=== PATIENT | female | born 1960 | race Caucasian/White ===

== ENCOUNTER 2016-06-21 23:52 | Emergency (ER) | payer BC ==
[~2016-06-21] VITALS: Ht 167.6 cm; Wt 70.0 kg
[2016-06-21 23:57] VITALS: BP 109/66; PULSE 100; RESP 18; TEMP 97.9; O2SAT 99
[2016-06-22 01:00] VITALS: BP 115/65; PULSE 104; RESP 18; O2SAT 96
[2016-06-22] MEDS ORDERED: KETOROLAC TROMETHAMINE 30 MG/ML (IVP) VIAL IV PUSH ONE (01:00)
[2016-06-22] MEDS ORDERED: CYCLOBENZAPRINE HCL 10 MG TAB PO ONE (01:00)
--- NOTE | 2016-06-22 01:39 | RADRPT ---
EXAM DATE/TIME: 06/22/2016 01:21 [place] COMPARISON: No previous studies available for comparison. INDICATIONS : Patient slipped and fell in hotel room, landing on left shoulder. Complains of left shoulder pain in proximal humerus. MEDICAL HISTORY : None. SURGICAL HISTORY : None. ENCOUNTER: Initial ACUITY: 1 day PAIN SCORE: 10/10 LOCATION: Left Shoulder FINDINGS: There is a mildly displaced oblique fracture involving the surgical neck of the proximal left humerus . The humeral head articular surface appears intact and remains articulated with the bony glenoid. Th e adjacent scapula, clavicle and ribs appear intact. CONCLUSION: Left humeral neck fracture Richard Smtih MD on June 22, 2016 at 1:37 Board Certified Radiologist. This report was verified electronically.
[2016-06-22] MEDS ORDERED: ACETAMINOPHEN/HYDROcodone 325 MG/5 MG TAB PO ONE (02:00)
[2016-06-22] MEDS ORDERED: HYDR-3533 PO (02:34)
--- NOTE | 2016-06-22 02:34 | PD ---
HPI Chief Complaint: Fall Time Seen by Provider: 00:42 Travel History International Travel<30 days: No Contact w/Intl Traveler<30days: No Traveled to known affect area: No History of Present Illness HPI Patient is a 56-year-old female who comes in after she slipped and fell tonight. She says she landed on her left shoulder. She denies hitting her head. She complains of severe pain to her left shoulder. She denies any other injuries. She denies any loss of consciousness. She has not taken anything at home for pain. She denies any chest pain or shortness of breath. [facility] Past Medical History High Cholesterol: Yes ?: Not Past Surgical History Other Surgery: Yes (KNEE SURGERY ) Social History Alcohol Use: No Tobacco Use: No Substance Use: No Allergies-Medications (Allergen,Severity, Reaction): Coded Allergies: No Known Allergies (Unverified , 06/22/16) Review of Systems Except as stated in HPI: all other systems reviewed are Neg General / Constitutional: No: Fever, Chills HENT: No: Headaches, Lightheadedness Cardiovascular: No: Chest Pain or Discomfort Respiratory: No: Shortness of Breath Gastrointestinal: No: Nausea, Vomiting Musculoskeletal: Positive: Pain Skin: No Rash, No Change in Pigmentation Neurologic: No: Weakness, Dizziness, Sensory Disturbance Physical Exam Narrative GENERAL: Awake and alert, in moderate distress due to pain. SKIN: Warm and dry. HEAD: Atraumatic. Normocephalic. EYES: Pupils equal and round. No scleral icterus. ENT: Mucous membranes pink and moist. NECK: Trachea midline. No JVD. CARDIOVASCULAR: Regular rate and rhythm. No murmur appreciated. RESPIRATORY: No accessory muscle use. Clear to auscultation. Breath sounds equal bilaterally. GASTROINTESTINAL: Abdomen soft, non-tender, nondistended. MUSCULOSKELETAL: No obvious deformities. No clubbing. No cyanosis. No edema. Tender to palpation of left shoulder. Refusing to move left shoulder secondary to pain. Radial pulses intact. Sensation intact. NEUROLOGICAL: Awake and alert. No obvious cranial nerve deficits. Motor grossly within normal limits. Normal speech. PSYCHIATRIC: Appropriate mood and affect; insight and judgment normal. Data Data Last Documented VS Vital Signs Date Time Temp Pulse Resp B/P Pulse Ox O2 Delivery O2 Flow Rate FiO2 06/21/16 23:57 97.9 100 18 109/66 99 Orders Ketorolac Inj (Toradol Inj) (06/22/16 01:00) Cyclobenzaprine (Flexeril) (06/22/16 01:00) Shoulder, Limited(2vws) (06/22/16 ) Support Splint (06/22/16 01:44) Acetamin-Hydrocod 325-5 Mg ([place] 5-325 (06/22/16 02:00) MDM Medical Decision Making Medical Screen Exam Complete: Yes Emergency Medical Condition: Yes Differential Diagnosis Shoulder fracture versus dislocation versus musculoskeletal strain Narrative Course Patient is a 56-year-old female fell comes in complaining of left shoulder pain after a fall today. Exam shows tenderness to palpation of the shoulder, pain with movement of the shoulder. Patient given Toradol and Flexeril for pain. X- ray performed shows fracture of the humeral head, no displacement or dislocation. Patient placed in a sling. Given Lortab. Will be discharged with prescription for Lortab. Advised to follow-up with orthopedics. Diagnosis Primary Impression: Humeral fracture Qualified Code: S42.295A - Other closed nondisplaced fracture of proximal end of left humerus, initial encounter Patient Instructions: General Instructions, Proximal Humerus Fracture (ED) Additional Instructions: Follow up with your orthopedic shoulder. Take pain medicine as needed. Make sure to wear the sling until you see your orthopedic surgeon. Scripts Hydrocodone-Acetaminophen (Lortab)5-325 Mg Tab1 Tab PO Q6H PRN (PAIN) #14 TAB Ref 0 Prov:Mary Montano MD 06/22/16 Disposition: DISCHARGE HOME Condition: Stable Mary Montano MD Jun 22, 2016 02:34
[2016-06-22 02:51] VITALS: BP 120/61
== END 2016-06-22 02:58 | disposition home or self-care (01) ==
LOC: NEPE 23:52 → EDSEX 23:52 → NEPE 06-22 02:58
DX: S42.295A Other nondisplaced fracture of upper end of left humerus, initial encounter for closed fracture (principal); W01.0XXA Fall on same level from slipping, tripping and stumbling without subsequent striking against object, initial encounter; E78.00 Pure hypercholesterolemia, unspecified
CPT/HCPCS: 29240; 73030; 96374; 99283; J1885